=== PATIENT | male | born 1985 | race Two or more races ===

== ENCOUNTER 2017-06-27 07:24 | Day surgery (SDC) | payer OTHER ==
[~2017-06-27] VITALS: Ht 180.3 cm; Wt 87.1 kg
[2017-06-27 08:00] VITALS: BP 122/88
[2017-06-27] MEDS ORDERED: MOTRIN600 MG PO (11:16)
[2017-06-27] MEDS ORDERED: NORCO 5/3251 TABLET PO (11:16)
[2017-06-27 12:43] VITALS: BP 115/84
[2017-06-27 13:33] VITALS: BP 123/88
== END 2017-06-27 13:40 | disposition home or self-care (01) ==
LOC: SDC 07:24
PROC: 0WUF0JZ Supplement Abdominal Wall with Synthetic Substitute, Open Approach (ICD-10-PCS; principal; 2017-06-27)
DX: K43.2 Incisional hernia without obstruction or gangrene (principal); N43.3 Hydrocele, unspecified; E66.3 Overweight; Z68.27 Body mass index [BMI] 27.0-27.9, adult
CPT/HCPCS: C1781; J0690; J1170; J2175; J2250; J3010; S0020